=== PATIENT | female | born 1965 | race Asian ===

== ENCOUNTER 2025-05-12 00:36 | Day surgery (SDC) | payer OTHER, SELFPAY ==
[2025-04-28 15:22] VITALS: BMI 19.5
--- OUTSIDE RECORDS SUMMARY | 2025-05-12 00:38 | XMS_ITS | Encounter Summary ---
Author Organization [facility] Health Address [address] [place] [address] [address] Prov[address] Care [address] Tester Name Role Phone Unavailable Primary Care Provider Unavailabl e Encounter Details Date Type Department Care Team (Late st Contact Info) Description 12/29/2019 Lab Requisition [facility] MICROBIOLOGY [address] [place] [address] Henrik Sales MD [address] [address] Social History Tobacco Use Types Packs/Day Years Used Date Smoking Tobacco: Never Assessed Comments Unknown Sex and Gender Information Value Date Recorded Sex Assigned at Not on file Legal Sex Female 1:22 PM CDT Gender Identity Not on file Sexual Orientation Not on file documented as of this encounter Plan of Treatment Not on file documented as of this encounter Procedures Procedure Name Priority Date/Time Associated Diagnosis Comments SARS-COV-2 (COVID-19) IN HOUSE Routine 12/29/2019 10:10 AM CDT documented in this encounter Results * SARS-COV-2 (COVID-19) IN HOUSE (12/29/2019 10:10 AM CDT) COVID-19 PCR Not detected Not detected, Invalid 12/30/2019 3:19 PM CDT [facility] MICROBIOLOGY Microbiology SPECIMEN FROM NASOPHARYNGEAL STRUCTURE / Unknown Collection / Unknown 12/29/2019 10:10 AM CDT 12/29/2019 9:19 PM CDT Narrative [facility] MICROBIOLOG[facility] - 12/30/2019 3:19 PM CDT This Real Time RT-PCR assay was developed and its performance characteristics determined by [facility]biology [facility]. This test has been authorized by the Food and Drug administration (FDA)under an Emergency Use Authorization (EUA). This test has been validated in accordance with the FDA's guidance document Policy for Diagnostic Testing in Laboratories Certified to perform High Complexity Testing under CLIA prior to Emergency Use Authorization for Coronavirus Disease-2019 during the Public Health Emergency issued on 2019. FDA independent review of this validation is pending. This test is only authorized for the duration of time the declaration that circumstances exist justifying the authorization of emergency use of in vitro diagnostic tests for detection of SARS-CoV-2 virus and/or diagnosis of COVID-19 infection under section 564(b)(1) of the Act, 21 U.S.C 360bbb-3 (b)(1), unless the authorization is terminated or revoked sooner. Henrik Sales MD LAB - MICROBIOLOGY ORDERABLES Fi nal Result [facility]CROBIOLOGY [address] [place] [address], [facility] [phone] documented in this encounter Visit Diagnoses Not on filedocumented in this encounter Additional Health Concerns Infection Onset Date Last Indicated Resolved Time COVID-19 Under Investigation 12/29/2019 12/29/2019 12/30/2019 3:19 PM CDT documented as of this encounter
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
--- OUTSIDE RECORDS SUMMARY | 2025-05-12 00:39 | XMS_ITS | Clinical Summary ---
Author Organization [facility] Address [address] [place] [address] Care Team Providers Care Investment Broker Name Role Phone Unavailable Primary Care Provider Unavailabl e Source Comments [facility],non-owned Affiliates and Associated Physician Practices is amultiple site organization consisting of ambulatory clinics and hospital sitesin [place], [place], [place] and [place]. This disclosure is being madepursuant to the Care Everywhere program and may not contain all information available regarding this patient. Last updated 18.[facility] Transcriptic Social History Tobacco Use Types Packs/Day Years Used Date Smoking Tobacco: Never Assessed Comments Unknown Sex and Gender Information Value Date Recorded Sex Assigned at Not on file Legal Sex Female 1:22 PM CDT Gender Identity Not on file Sexual Orientation Not on file Last Filed Vital Signs Vital Sign Reading Time Taken Comments Blood Pressure 111/75 04/17/2015 5:45 PM CDT Pulse 76 04/17/2015 5:45 PM CDT Temperature 36.9 C (98.5 F) 04/17/2015 6:36 AM CDT Respiratory Rate 18 04/17/2015 7:54 AM CDT Oxygen Saturation 100% 04/17/2015 5:45 PM CDT Inhaled Oxygen Concentration - - Weight 59 kg (130 lb) 04/17/2015 6:36 AM CDT Height 172.7 cm (5' 8) 04/17/2015 6:36 AM CDT Body Mass Index 19.77 04/17/2015 6:36 AM CDT Plan of Treatment Health Maintenance Due Date Last Done Comments COLOGUARD (AGES 45-75) - COL ON CA SCREENING 1965 COLON MONITORING 1967 COLONOSCOPY - COLON CA SCREENING 1967 CT COLONOGRAPHY - COLON CA SCREENING 1967 Colorectal Cancer Screening 1967 FIT - COLON CA SCREENING 1967 FLEX SIG - COLON CA SCREENING 1967 LIPID TESTING 1967 HIV SCREENING 09/04/1982 HEPATITIS C SCREENING 08/31/1985 DTAP/TDAP/TD VACCINES (1 - Tdap) 09/04/1986 HEPATITIS B VACCINE (1 of 3 - 19+ 3-dose series) 09/04/1986 PNEUMOCOCCAL VACCINE 50+ (1 of 1 - PCV) 09/04/2017 ZOSTER VACCINE (1 of 2) 09/04/2017 MAMMOGRAM 02/12/2019 02/12/2017 DEPRESSION SCREENING 07/08/2024 COVID-19 VACCINE (1 - 2023-2 5 season) 2025 INFLUENZA VACCINE (#1) 2025 HIB VACCINE Aged Out No longer eligi ble based on patient's age to complete this topic HPV VACCINE Aged Out No longer eligi ble based on patient's age to complete this topic MENINGOCOCCAL (Group B) VACC INE SHARED DECISION-MAKING Aged Out No longer eligibl e based on patient's age to complete this topic MENINGOCOCCAL GROUPS A/C/Y/W VACCINE Aged Out No longer eligible b ased on patient's age to complete this topic Procedures Procedure Name Priority Date/Time Associated Diagnosis Comments MAMMO BILAT SCREENING Routine 02/12/2017 10:16 AM CDT from Last 3 Months or Most Recently Relevant to Health Maintenance Results * MAMMO BILAT SCREENING (02/12/2017 10:16 AM CDT) Anatomical Region Laterality Modality Breast Bilateral Other Impressions 02/13/2017 8:54 AM CDT IMPRESSION: No mammographic evidence of malignancy. ASSESSMENT: BI-RADS Category 2: Benign mammogram. RECOMMENDATION: Return for mammograms in one year or sooner if clinically indicated. Breast implants decrease the sensitivity of mammography. This report was electronically signed by SEKOU ORTIZ M.D. on 02/13/2017 8:54 AM . Narrative 02/13/2017 8:54 AM CDT Bilateral screening mammogram Date: 02/24/2017 Comparison: 06/14/2011 History: Screening mammogram. Silicone breast implants placed in 2010. RISK ASSESSMENT CALCULATION: Based on the information provided by the patient, her lifetime risk of breast cancer is average (<15%). Technique: Low-dose full-field digital mammography examination was performed, including implant displaced views. Findings: No suspicious mass, grouped microcalcification or architectural distortion is seen. No significant change is noted since the prior examination. The implants appear unchanged in contour. Breast parenchymal density: The breast tissue demonstrates scattered areas of fibroglandular density. This examination was subjected to CAD analysis. Procedure Note Belen Ortiz MD - 10/04/2017 Bilateral screening mammogram Date: 02/24/2017 Comparison: 06/14/2011 History: Screening mammogram. Silicone breast implants placed in 2010. RISK ASSESSMENT CALCULATION: Based on the information provided by thepatient, her lifetime risk of breast cancer is average (<15%). Technique: Low-dose full-field digital mammography examination wasperformed, including implant displaced views. Findings: No suspicious mass, grouped microcalcification or architectural distortionis seen. No significant change is noted since the prior examination. Theimplants appear unchanged in contour. Breast parenchymal density: The breast tissue demonstrates scatteredareas of fibroglandular density. This examination was subjected to CAD analysis. IMPRESSION IMPRESSION: No mammographic evidence of malignancy. ASSESSMENT: BI-RADS Category 2: Benign mammogram. RECOMMENDATION: Return for mammograms in one year or sooner if clinicallyindicated. Breast implants decrease the sensitivity of mammography. This report was electronically signed by SEKOU ORTIZ M.D. on02/13/2017 8:54 AM . Historical Provider MD [facility] ORDERABLES Final Re sult from Last 3 Months or Most Recently Relevant to Health Maintenance
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
--- OUTSIDE RECORDS SUMMARY | 2025-05-12 00:39 | XMS_ITS | Clinical Summary ---
Author Organization [facility] Address [address] [place] [id number] Care Team Providers Care Fly Maker Name Role Phone None, Provider MD Primary Care Provider Unavaila ble Allergies No known active allergies Medications buPROPion XL 150 MG 24 hr tablet Take 450 mg by mouth daily. 07/17/2021 Active acyclovir 400 MG tablet Take 400 mg by mouth 2 (two) times daily. 07/17/2021 Active Family History Medical History Relation Comments Heart Disease Father Hyperlipidemia Father Hypertension Father Relation Status Comments Father Social History Tobacco Use Types Packs/Day Years Used Date Smoking Tobacco: Former Cigarettes Smokeless Tobacco: Never Alcohol Use Standard Drinks/Week Comments Not Currently 0 (1 standard drink = 0.6 oz pur e alcohol) Comments No Sex and Gender Information Value Date Recorded Sex Assigned at Not on file Legal Sex Female 8:20 PM CDT Gender Identity Not on file Sexual Orientation Not on file Last Filed Vital Signs Vital Sign Reading Time Taken Comments Blood Pressure 130/96 09/29/2021 9:25 AM CDT Pulse 86 09/29/2021 9:25 AM CDT Temperature 36.4 C (97.6 F) 09/29/2021 9:25 AM CDT Respiratory Rate 18 09/29/2021 9:25 AM CDT Oxygen Saturation 97% 09/29/2021 9:25 AM CDT Inhaled Oxygen Concentration - - Weight 54.4 kg (120 lb) 09/29/2021 9:25 AM CDT Height 162.6 cm (5' 4) 09/29/2021 9:25 AM CDT Body Mass Index 20.6 09/29/2021 9:25 AM CDT Plan of Treatment Health Maintenance Due Date Last Done Comments Cervical Cancer Screening Pa p Smear (Age 30 to 64) Every 3 Years 1967 Colorectal Cancer Screening Colonoscopy (10 Years) 1967 Annual Physical 09/04/1970 Hepatitis C 09/04/1985 Hepatitis B Vaccines (1 of 3 - 19+ 3-dose series) 09/04/1986 DTaP, Tdap and Td Vaccines ( 1 - Tdap) 04/27/1994 04/26/1994 Cervical Cancer Screening Pa p with HPV Testing (Age 30 to 64) Every 5 Years 09/04/1997 Cervical Cancer Screening wi th HPV 09/04/1997 Mammogram Screening 2007 Pneumococcal Vaccine: 50+ Years (1 of 1 - PCV) 09/04/2017 Zoster Vaccines (1 of 2) 09/04/2017 COVID-19 Vaccine (3 - 2024-2 6 season) 2025 11/26/2020, 11/05/2020 Influenza Adult (#1) 2025 06/18/2008 Hepatitis A Vaccines Aged Out No long er eligible based on patient's age to complete this topic Meningococcal B Vaccine Aged Out No l onger eligible based on patient's age to complete this topic Meningococcal Vaccine Aged Out No jenniffer simi eligible based on patient's age to complete this topic RSV Immunizations Under 20 Months Aged Out No longer eligible b ased on patient's age to complete this topic Insurance Care Teams Fly Maker Relationship Specialty Start Date End Date None, Provider, PCP - General 09/29/21
--- OUTSIDE RECORDS SUMMARY | 2025-05-12 00:39 | XMS_ITS | Patient Health Record ---
Author Organization [facility] Address [address] [place] [address] Care Team Providers Care Fish Cleaner Name Role Phone HARVEYADFI Unavailable [phone] Reason For Referral No Information Plan Of Treatment No Information
--- OUTSIDE RECORDS SUMMARY | 2025-05-12 00:39 | XMS_ITS | Clinical Summary ---
Author Organization [facility] Address [address] [place] [address] Phone Care Team Providers Care Clipper Operator Name Role Phone [facility], External Provider Primary Care Provider U navailable Social History Tobacco Use Types Packs/Day Years Used Date Smoking Tobacco: Never Assessed Comments Unknown Sex and Gender Information Value Date Recorded Sex Assigned at Not on file Legal Sex Female 5:43 AM SCREEN ROLLER Gender Identity Not on file Sexual Orientation Not on file Plan of Treatment Health Maintenance Due Date Last Done Comments DTAP/TDAP/TD VACCINES (1 - Tdap) 09/04/1986 HEPATITIS B VACCINES (1 of 3 - 19+ 3-dose series) 08/09 HPV/Cotest (21-29) 09/04/1988 CERVICAL CANCER SCREENING 09/04/1997 HPV/Cotest (30-65) 09/04/1997 PAP SMEAR 09/04/1997 BREAST CANCER SCREENING 2007 COLORECTAL SCREENING 09/04/2012 Colorectal Cancer Screening 09/04/2012 FIT-DNA Q 3 years 09/04/2012 FIT/FOBT Q 1 year 09/04/2012 Flex Sig/CT Colonography Q 5 years 09/04/2012 ZOSTER VACCINE (1 of 2) 09/04/2017 INFLUENZA VACCINE (#1) 2025 Insurance MEDICAID [place] Care Teams Clipper Operator Relationship Specialty Start Date End Date [facility], External Provider [address] [place] [address] PCP - General 03/28/09
--- OUTSIDE RECORDS SUMMARY | 2025-05-12 00:39 | XMS_ITS | Patient Health Record ---
Author Organization [facility] Address [address] [facility] [address] [place] [address] Care Team Providers Care Blankmaker Name Role Phone Connie Solano Primary Care Provider Mark Avendaño Unavailable [phone] Reason For Referral No Information Medications Medication SIG (Take, Route, Frequency, Duration) Notes Start Date End Date Status Amphetamine-Dextroampheta mine 10 MG Tablet TAKE 2 TABLETS BY MOUTH IN THE MORNING AND 1 TABLET IN THE EARLY AFTERNOON Oral; Duration: 30 Days Active Vraylar 1.5 MG Capsule TAKE 1 CAPSULE BY MOUTH EVERY DAY Oral; Duration: 30 Days Not-Taking ALPRAZolam 1 MG Tablet NEEDED FOR ANX IETY TAKE 1/2 TO 1 TABLET ORALLY TWICE A DAY NEEDED Oral; Duration: 30 Days Active Zolpidem Tartrate ER 6.25 MG Tablet Extended Release 1 tablet at bedtime as needed Oral Once a day; Duration: 30 days Active valACYclovir HCl 1 GM Tablet TAKE 1 TABLET BY MOUTH DAILY Oral; Duration: 90 Days Active HYDROcodone-Acetaminophen 5-325 MG Tablet TAKE 1 TABLET BY MOUTH EVERY 6 HOURS NEEDED FOR PAIN Oral; Duration: 7 Days Active ARIPiprazole 2 MG Tablet 1 tablet Oral O nce a day; Duration: 30 days Active Social History Sex Assigned At : Social History Observation Description Sex Assigned At Female Social History Additional Details Category Social Info Options Details Migrated Social History Migrated Social History Alcohol Intake: None 08/28/2023,Tobacco Years: Former smoker 08/28/2023 Problems Problem Type SNOMED Code ICD Code Onset Dates Problem Status W/U Status Risk Notes Problem Manic bipolar I disorder (17765437) Bipolar disorder, current episode manic without psychotic features, unspecified (F31.10) 4 Active confirmed Problem Severe depressed bipolar I disorder without psychotic features (05796463) Bipolar disorder, current episode depressed, severe, without psychotic features (F31.4) 4 Active confirmed Problem Bipolar disorder, current episode depressed, severe, with psychotic features (F31.5) 4 Active confirmed Problem Generalized anxiety disorder (97096608) Generalized anxiety disorder (F41.1) 4 Active confirmed Problem Primary insomnia (4560762) Primary insomnia (F51.01) 4 Active confirmed Problem Bipolar affective disorder, currently depressed, moderate (235161626) Bipolar 1 disorder, depressed, moderate (F31.32) Active confirmed Encounters Encounter Location Date Provider Diagnosis [facility] [address] [address] [facility] [address] [address] [facility] [employer] [address] 01/22/2025 Mark Prasanna Plan Of Treatment No Information Medical (General) History Medical History History ICD Code Problems: Bipolar affective disorder, cu rrent episode depression Bipolar disorder, most recent episode ma enid Cannabis dependence Generalized anxiety disorder Primary insomnia Severe depressed bipolar I disorder , Surgical History Surgery Date(Month/Year) Breast surgery (23834) 07/22/2012
[2025-05-12 07:52] VITALS: BP 114/77; PULSE 74; RESP 18; TEMP 36.6; O2SAT 99; BMI 18.3
[2025-05-12] MEDS: LACTATED RINGERS 1,000 ML 150 ML IV CONT (08:00)
--- NOTE | 2025-05-12 09:00 | P.HP_ITS ---
H&P: HPI History of Present Illness Date/Time: 05/12/25 09:00 Chief Complaint: Screening for colorectal cancer Narrative: This is a 59-year-old woman who presents for colonoscopy. Her last colonoscopy was 10 years ago. She denies any hematochezia or melena. She denies any family history of colon cancer. She does have a history of hemorrhoids and has had a hemorrhoid surgery in the past. Review of Systems Review of Systems: All systems reviewed & are unremarkable except as noted in HPI and below Constitutional: Constitutional: Denies chills, Denies fever(s), Denies headache(s) and Denies weight loss Eyes: Eyes: Denies change in vision ENT: Denies dizziness, Denies headache(s), Denies neck mass and Denies throat swelling Cardiovascular: Cardiovascular: Denies chest pain, Denies lightheadedness and Denies dyspnea Respiratory: Respiratory: Denies cough, Denies dyspnea and Denies wheezing Gastrointestinal: Gastrointestinal: Denies abdominal pain, Denies change in bowel habits, Denies nausea and Denies vomiting Genitourinary: Genitourinary: Denies hematuria and Denies dysuria Musculoskeletal: Musculoskeletal: Reports as per HPI Integumentary/Breasts: Skin/Breast: Reports as per HPI Neurologic: Denies dizziness and Denies headache(s) Allergic/Immunologic: Allergic/Immunologic: Denies throat swelling and Denies wheezing [facility] Past Medical History Medical History (Updated 05/12/25 @ 09:01 by Olaf Morin DO) GERD (gastroesophageal reflux disease) Concussion with loss of consciousness of unspecified duration, subsequent encounter (2021) Body mass index (BMI) less than 20 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 COVID-19 Arthritis Anemia Surgical History Surgical History Hx of breast augmentation Family History Family History Father Diabetes mellitus Hypertension Heart disease Mother Depression Alcoholism Dementia Sibling Asthma Grandparent Diabetes mellitus Hypertension Depression Lymphoma Acute myocardial infarction Cerebrovascular accident Heart disease Grandparent Diabetes mellitus Heart disease Hypertension Grandparent Hypertension Social History Social History Smoking packs per day: 1 Smoking cigarettes per day: 20.0 Years smoked: 20 Smoking pack-years: 20.00 Smoking status: Current every day smoker Tobacco type: cigarettes Second hand tobacco smoke exposure: No Smoking end date: 07/08/21 Additional smoking assessment comments: Currently Vapes Alcohol intake: current Alcohol use details: Hx of alcoholism Substance use: current Substance use type: marijuana Last use: Daily Do You Feel Safe in your Home?: Yes Lack of Transportation: No Lack of Food: Sometimes True Current Housing: I Have Housing Concerned About Future Housing: No Difficulty Paying Gas/Electric Bills: YES Difficulty Paying for Meds: No Currently Unemployed: No Education: Bachelor's Degree Difficulty w/ Childcare or Family Care: No Living arrangements: with family Occupation/Education: occupation Additional occupation/education comments: [employer] Gender identity (if verbalized by the patient): Female Sexual Orientation (if Verbalized by the Patient): Straight or Heterosexual Spiritual care concerns: No Agree to blood products: Yes Meds Home Medications and Allergies Home Medications ?Medication ?Instructions ?Recorded ?Confirmed ?Type lifitegrast 5 % eye drops in a 1 drp EACH EYE BID #60 ea 03/06/23 05/12/25 Rx dropperette (Xiidra) fluticasone propionate 50 1 spray intranasal DAILY #16 grams 04/17/23 05/12/25 Rx mcg/actuation nasal spray,suspension rimegepant 75 mg disintegrating 75 mg PO ONCE PRN migr jyoti 05/25/24 05/12/25 Rx tablet (Nurtec ODT) headache #7 tabs valacyclovir 1 gram tablet See Rx Instructions .Route 11/18/24 05/12/25 Rx .COMPLEX #90 tabs zolpidem 5 mg tablet 5 mg PO QHS PRN insomnia #30 tabs 01/06/25 04/28/25 Rx lurasidone 40 mg tablet (Latuda) 40 mg PO DAILY #90 ta bs 01/29/25 05/12/25 Rx levothyroxine 25 mcg tablet 25 mcg PO DAILY #90 tabs 0 02/17/25 05/12/25 Rx varenicline tartrate 1 mg tablet 1 mg PO BID #56 tabs 02/17/25 05/12/25 Rx metronidazole 500 mg tablet 500 mg PO BID #20 tabs 08/0105/12/25 Rx estradiol 0.01% (0.1 mg/gram) 1 g vaginal 2XW #42.5 gr ams 04/13/25 05/12/25 Rx vaginal cream indomethacin 50 mg capsule 50 mg PO TID PRN pain #90 c aps 04/13/25 04/28/25 Rx alprazolam 1 mg tablet See Rx Instructions PO BID P RN 05/11/25 05/12/25 Rx anxiety #60 tabs dextroamphetamine-amphetamine 10 See Rx Instructions P O DAILY #90 05/11/25 05/12/25 Rx mg tablet tabs hydrocodone 5 mg-acetaminophen 325 1 tablet PO Q6H PRN pain #30 tabs 05/12/25 05/12/25 Rx mg tablet Allergies Allergy/AdvReac Type Severity Reaction Status Date / Time No Known Allergies Allergy Verified 05/12/25 07:49 Vital Signs Vital Signs - 24 hr 05/12/25 07:52 Temperature 98 F Pulse Rate 74 Respiratory Rate 18 Blood Pressure 114/77 Pulse Oximetry 99 Oxygen Delivery Room Air Exam Const: General: no acute distress and alert Orientation/consciousness: patient oriented x3 HENMT: Head: normocephalic and atraumatic Ears: hearing grossly normal bilaterally Face/Nose/Sinus: Normal nares present Mouth: Yes Normal oral and palatal mucosa present Eyes: Periorbital: periorbital findings normal Sclera: sclerae normal EOM: EOMs intact bilaterally Neck: Neck: normal visual inspection, no lymphadenopathy and trachea midline Chest: Chest palpation & inspection: normal inspection of the chest Resp: Effort & Inspection: normal respiratory effort Auscultation: clear to auscultation bilaterally Cardio: Jugular venous distension: no JVD Rate: regular rate Rhythm: regular rhythm Heart sounds: S1 normal heart sound present and S2 normal heart sound present Peripheral pulses: Peripheral pulses 2+ throughout GI: Inspection: normal to inspection GI Palp: Yes Soft to palpation, No Tenderness to palpation present (GI), No Guarding due to palpation present (GI) and No Rebound tenderness present Percussion: Yes normal to percussion Auscultation: normal bowel sounds : General: Yes no CVA tenderness Back/Spine/Pelvis: Back: no CVA tenderness Neuro: General: patient oriented x3, no focal motor deficits and CN's II-XI intact bilaterally Cognition (Neuro): normal cognition Speech: normal speech Motor exam (neuro): 5/5 motor strength present throughout Extrem: General: capillary refill normal and no clubbing, cyanosis or edema Assessment and Plan Assessment and plan (1) Screening for colorectal cancer: Code(s): Z12.11 - Encounter for screening for malignant neoplasm of colon; Z12.12 - Encounter for screening for malignant neoplasm of rectum Status: Acute Assessment and Plan: I have recommended colonoscopy. I have discussed the procedure, risks, benefits, and alternatives. Questions were answered. Patient is agreeable to proceed.
--- NOTE | 2025-05-12 09:07 | P.PNAN_ITS ---
Anes - Initial Pre Proc Eval Procedure: Operation Date: 05/12/25 09:00 Proposed Procedures p Screening Colonoscopy - Olaf Morin DO Date/Time: 05/12/25 09:07 Surgeon: Olaf Morin DO Pre Op Diagnosis: Neoplasm screening Patient Data Age: 59 Gender: F Height: 1.6 m Weight: 47.1 kg Last Vital Signs Temp 36.6 C 05/12/25 07:52 Pulse 74 05/12/25 07:52 Resp 18 05/12/25 07:52 BP 114/77 05/12/25 07:52 Pulse Ox 99 05/12/25 07:52 O2 Del Method Room Air 05/12/25 07:52 Allergies Allergy/AdvReac Type Severity Reaction Status Date / Time No Known Allergies Allergy Verified 05/12/25 07:49 Home Medications ?Medication ?Instructions ?Recorded ?Confirmed ?Type lifitegrast 5 % eye drops in a 1 drp EACH EYE BID #60 ea 03/06/23 05/12/25 Rx dropperette (Xiidra) fluticasone propionate 50 1 spray intranasal DAILY #16 grams 04/17/23 05/12/25 Rx mcg/actuation nasal spray,suspension rimegepant 75 mg disintegrating 75 mg PO ONCE PRN migr jyoti 05/25/24 05/12/25 Rx tablet (Nurtec ODT) headache #7 tabs valacyclovir 1 gram tablet See Rx Instructions .Route 11/18/24 05/12/25 Rx .COMPLEX #90 tabs zolpidem 5 mg tablet 5 mg PO QHS PRN insomnia #30 tabs 01/06/25 04/28/25 Rx lurasidone 40 mg tablet (Latuda) 40 mg PO DAILY #90 ta bs 01/29/25 05/12/25 Rx levothyroxine 25 mcg tablet 25 mcg PO DAILY #90 tabs 0 02/17/25 05/12/25 Rx varenicline tartrate 1 mg tablet 1 mg PO BID #56 tabs 02/17/25 05/12/25 Rx metronidazole 500 mg tablet 500 mg PO BID #20 tabs 08/0105/12/25 Rx estradiol 0.01% (0.1 mg/gram) 1 g vaginal 2XW #42.5 gr ams 04/13/25 05/12/25 Rx vaginal cream indomethacin 50 mg capsule 50 mg PO TID PRN pain #90 c aps 04/13/25 04/28/25 Rx alprazolam 1 mg tablet See Rx Instructions PO BID P RN 05/11/25 05/12/25 Rx anxiety #60 tabs dextroamphetamine-amphetamine 10 See Rx Instructions P O DAILY #90 05/11/25 05/12/25 Rx mg tablet tabs hydrocodone 5 mg-acetaminophen 325 1 tablet PO Q6H PRN pain #30 tabs 05/12/25 05/12/25 Rx mg tablet Patient hx anesthesia problems: none Family hx anesthesia problems: none Results Review: All pre-operative results and documents have been reviewed as part of the pre- operative evaluation. 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 COVID-19 Arthritis Anemia Surgical History Surgical History Hx of breast augmentation Family History Family History Father Diabetes mellitus Hypertension Heart disease Mother Depression Alcoholism Dementia Sibling Asthma Grandparent Diabetes mellitus Hypertension Depression Lymphoma Acute myocardial infarction Cerebrovascular accident Heart disease Grandparent Diabetes mellitus Heart disease Hypertension Grandparent Hypertension Social History Social History Smoking packs per day: 1 Smoking cigarettes per day: 20.0 Years smoked: 20 Smoking pack-years: 20.00 Smoking status: Current every day smoker Tobacco type: cigarettes Second hand tobacco smoke exposure: No Smoking end date: 07/08/21 Additional smoking assessment comments: Currently Vapes Alcohol intake: current Alcohol use details: Hx of alcoholism Substance use: current Substance use type: marijuana Last use: Daily Do You Feel Safe in your Home?: Yes Lack of Transportation: No Lack of Food: Sometimes True Current Housing: I Have Housing Concerned About Future Housing: No Difficulty Paying Gas/Electric Bills: YES Difficulty Paying for Meds: No Currently Unemployed: No Education: Bachelor's Degree Difficulty w/ Childcare or Family Care: No Living arrangements: with family Occupation/Education: occupation Additional occupation/education comments: [employer] Gender identity (if verbalized by the patient): Female Sexual Orientation (if Verbalized by the Patient): Straight or Heterosexual Spiritual care concerns: No Agree to blood products: Yes Anes - Eval Final PreProcedure Day of Procedure 05/12/25 09:07 Patient weight: normal Heart: regular rate and rhythm Lungs: clear to auscultation and normal air movement Airway: Mallampati scale class II Neurological: alert and oriented Last oral intake: >/= 8 hours ASA classification: III Emergent: no Anesthetic plan: proceed Anesthesia type and monitoring: general GIVS and standard monitoring Results Review: All pre-operative results and documents have been reviewed as part of the pre- operative evaluation. Informed Consent: The patient's anesthetic plan and its attendant risks and benefits were discussed with the patient/family/POA. Questions were solicited and answers provided to the satisfaction of the patient/family/POA.
[2025-05-12 09:27] VITALS: BP 111/75; PULSE 70; RESP 20; O2SAT 99
[2025-05-12 09:37] VITALS: BP 119/85; PULSE 85; RESP 18; O2SAT 99
[2025-05-12 09:47] VITALS: BP 139/92; PULSE 73; RESP 24; O2SAT 99
== END 2025-05-12 09:56 | disposition home or self-care (01) ==
PROVIDERS: PCP Family Medicine Adolescent Medicine; Visit Provider Surgery
PROC: 0DJD8ZZ Inspection of Lower Intestinal Tract, Via Natural or Artificial Opening Endoscopic (ICD-10-PCS; CPT 45378; principal; 2025-05-12 09:00)
DX: Z12.11 Encounter for screening for malignant neoplasm of colon (principal); D64.9 Anemia, unspecified; K21.9 Gastro-esophageal reflux disease without esophagitis; G89.29 Other chronic pain; M25.552 Pain in left hip; M25.551 Pain in right hip; M19.90 Unspecified osteoarthritis, unspecified site; F17.290 Nicotine dependence, other tobacco product, uncomplicated; F12.90 Cannabis use, unspecified, uncomplicated; Z79.891 Long term (current) use of opiate analgesic; Z98.890 Other specified postprocedural states; Z96.643 Presence of artificial hip joint, bilateral; Z82.49 Family history of ischemic heart disease and other diseases of the circulatory system
CPT/HCPCS: 45378; J2704; J7120